=== PATIENT | female | born 1980 | race Caucasian/White ===

== ENCOUNTER 2018-08-15 19:40 | Inpatient (IN) | payer BC, MEDICAID ==
[2018-08-15] MEDS ORDERED: PENICILLIN G-K 5 MILLION UNIT VIAL ONE ×2 (20:03→23:52)
[2018-08-15] MEDS ORDERED: LIDOCAINE 1% INJ-PF (10 MG/ML) 30 ML SDV ONE (20:03)
[2018-08-15] MEDS ORDERED: OXYTOCIN/NORMAL SALINE 20 UNIT/1,000 ML RTUINJ ONE (20:03)
[2018-08-15] MEDS ORDERED: MISOPROSTOL 0.2 MG TABLET ONE (20:03)
[2018-08-15] MEDS ORDERED: OXYTOCIN/NORMAL SALINE 20 UNIT/1,000 ML RTUINJ IV PRN (20:09)
[2018-08-15] MEDS ORDERED: RINGERS SOLUTION,LACTATED 1,000 ML IV ONE (20:09)
[2018-08-15] MEDS ORDERED: RINGERS SOLUTION,LACTATED 1,000 ML IV PRN ×2 (20:09)
[2018-08-15] MEDS ORDERED: PENICILLIN G POTASSIUM 5,000,000 UNIT in DEXTROSE 5%-WATER 100 ML IV ONE (20:09)
[2018-08-15] MEDS ORDERED: RINGERS SOLUTION,LACTATED 300 ML IV ONE (20:09)
[2018-08-15 21:00] LABS: ABSOLUTE LYMPHOCYTES (AUTO) 1.5 10^3/uL (0.5-4.7); ABSOLUTE MONOCYTES (AUTO) 0.7 10^3/uL (0.1-1.4); ABSOLUTE NEUT (AUTO) 7.9 10^3/uL (1.7-8.2); BASOPHILS % (AUTO) 0.2 % (0-2); EOSINOPHILS % (AUTO) 0.3 % (0-6); HEMATOCRIT 36.1 % (36.0-47.0); HEMOGLOBIN 12.4 g/dL (12.0-15.5); LYMPHOCYTES % (AUTO) 14.6 % (13-45); MEAN CORPUSCULAR HEMOGLOBIN 32.3 pg (27.0-33.4); MEAN CORPUSCULAR HGB CONC 34.3 g/dL (32.0-36.0); MEAN CORPUSCULAR VOLUME 94 fl (80-97); MONOCYTES % (AUTO) 6.8 % (3-13); PLATELET COUNT 208 10^3/uL (150-450); RED BLOOD COUNT 3.83 10^6/uL (3.72-5.28); RED CELL DISTRIBUTION WIDTH 14.4 % (11.5-14.0); SEGMENTED NEUTROPHILS % (AUTO) 78.1 % (42-78); TOTAL CELLS COUNTED % (AUTO) 100 %; WHITE BLOOD COUNT 10.1 10^3/uL (4.0-10.5)
[2018-08-15 21:06] LABS: APPEARANCE,URINE SLIGHTLY-CLOUDY; BILIRUBIN,URINE NEGATIVE (NEGATIVE); COLOR,URINE YELLOW; GLUCOSE, URINE NEGATIVE (NEGATIVE); KETONES,URINE TRACE mg/dL (NEGATIVE); LEUKOCYTE ESTERASE,URINE TRACE (NEGATIVE); NITRITE,URINE NEGATIVE (NEGATIVE); PROTEIN,URINE NEGATIVE (NEGATIVE); URINE SPECIFIC GRAVITY 1.021; UROBILINOGEN,URINE NEGATIVE mg/dL (<2.0)
[2018-08-15 21:32] LABS: URINE AMPHETAMINES SCREEN NEGATIVE; URINE BARBITURATES SCREEN NEGATIVE; URINE BENZODIAZEPINES SCREEN NEGATIVE; URINE COCAINE SCREEN NEGATIVE; URINE MARIJUANA (THC) SCREEN NEGATIVE; URINE METHADONE SCREEN NEGATIVE; URINE PHENCYCLIDINE SCREEN NEGATIVE
[2018-08-16] MEDS ORDERED: FENTANYL CITRATE INJ/PF 100 MCG/2 ML AMPUL ONE (03:51)
[2018-08-16] MEDS ORDERED: FENTANYL CITRATE INJ/PF 100 MCG/2 ML AMPUL IV ONE (04:20)
--- NOTE | 2018-08-16 04:46 | Admission Physical ---
Datetime Report Generated by CPN: 08/16/2018 04:46 CURRENT ADMISSION Chief Complaint: Signs/Symptoms Gestational HTN; Scheduled Induction of Labor Indication for Induction: Chronic Primary/Essential HTN; Eclampsia-Mild Admit Impression : Term, Intrauterine ; No Active Labor; Intact Membranes; Induction of Labor Admit Plan: Admit to Unit; Initiate Labor Induction Protocol ALLERGIES Medication Allergies: Yes Medication Allergies: codeine/Hives (08/15/2018) Latex: No Latex Allergies Food Allergies: soy, msg, artificial colors _ preservatives OBSTETRICAL HISTORY EDC: 09/06/2018 00:00 : 4 Para: 3 Ectopic: 0 Livin Cesareans: 0 VBACs: 0 Multiple Births: 0 Gestational Diabetes: No Rh Sensitization: No Incompetent Cervix: No BRYAN: No Infertility: No ART Treatment: No Uterine Anomaly: No IUGR: No Hx Previous C/S: No Macrosomia: No Hx Loss/Stillborn: No PIH: No Hx : No Placenta Previa/Abruption: No Depression/PP Depression: No PTL/PROM: No Post Hemorrhage: No Obstetrical History Comments: G1: 2008 female 6lbs 7 oz G2: 2010 male 9lbs 8 oz G3: 2014 male 8lbs 0 oz SEE RECORDS Alcohol: No Marijuana : No Cocaine: No Other Illicit Drugs: No Cigarettes: Never Smoker. [id number] MEDICAL HISTORY Diabetes: No Blood Transfusion: No Pulmonary Disease (Asthma, TB): No Breast Disease: No Hypertension: Yes Computer Mechanic Surgery: No Heart Disease: No Hosp/Surgery: No Autoimmune Disorder: No Anesthetic Complications: No Kidney Disease: No Abnormal Pap Smear: No Neuro/Epilepsy: No Psychiatric Disorders: No Other Medical Diseases: No Hepatitis/Liver Disease: No Significant Family History: No Varicosities/Phlebitis: No Trauma/Violence : No Thyroid Dysfunction: No Medical History Comments: GHTH per MFM INFECTIOUS HISTORY Gonorrhea: No Genital Herpes: No Chlamydia: No Tuberculosis: No Syphilis: No Hepatitis: No HIV/AIDS Exposure: No Rash or Viral Illness: No HPV: Yes Infectious History Comments: HPV 2000 PHYSICAL EXAM General: Normal HEENT: Normal Neurologic: Normal Thyroid: Deferred Heart: Normal Lungs: Normal Breast: Deferred Back: Normal Abdomen: Normal Genitourinary Exam: Normal Extremities: Normal DTRs: Normal Pelvic Type: Adequate Vital Signs: Reviewed VAGINAL EXAM Dilatation: 2 Effacement: 50 Station: -3 Contraction Comments: rare MEMBRANES Membranes: Intact FETUS A Monitoring: External US FHR- Baseline: 140 Variability: Moderate 6-25bpm Accelerations: 15X15 Decelerations: None FHR Category: Category I Presentation: Vertex Admit Comment: 38yo at 36+6ega presents for IOL due to CHTN with superimposed preE. Pelvis proven to 9#8oz. H/o PreE with G1, G2, G3. +GBS - PCN for GBS prophy. Late transfer of care at 35wks. Declined RHogam at prior OB offices since this is her reported last . Pt declined Glucola - but per MFM normal accuchecks and no need to start medications. She does have a history of GDM with prior pregnancies. Declined Flu vaccine and declined Tdap. She was seen by M on 07/31 and noted polyhydramnios which resolved on subsequent AFIs in office at . 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 EFW on 07/31 was 8#0oz. She was sending GLucose logs to [facility] who was manageing this. She has a favorable cvx evam and was admitted on 08/15 for IOL. Pitocin initiated and patient made adquate change. Anticipate . pain medication on patient request. Will notify peds. PLANS FOR LABOR AND DELIVERY Labor and Delivery: Plan Pain Management: Natural Feeding Preference: Breast Benefit of Breast Feed Discussed: Yes Circumcision: No INFORMED CONSENT Informed Consent Obtained: Vaginal Delivery; Induction of Labor; Risks, Benefits and Alternatives Discussed Signature: Electronically signed by Janneth Angel MD ([facility]) on 08/16/2018 at 04:45 with User ID: [email or web address]
[2018-08-16] MEDS ORDERED: PROMETHAZINE HCL INJ 25 MG/1 ML VIAL IV PRN (04:51)
[2018-08-16] MEDS ORDERED: NA PHOS,M-B/NA PHOS,DI-BA (ADULT) 133 ML ENEMA PR PRN (04:51)
[2018-08-16] MEDS ORDERED: MEASLES,MUMPS&RUBELLA VACC/PF 0.5 ML VIAL SUBCUT PRN (04:51)
[2018-08-16] MEDS ORDERED: ZOLPIDEM TARTRATE 5 MG TABLET PO PRN (04:51)
[2018-08-16] MEDS ORDERED: DIPHENHYDRAMINE HCL 25 MG CAPSULE PO PRN (04:51)
[2018-08-16] MEDS ORDERED: PROMETHAZINE HCL 25 MG SUPP.RECT PR PRN (04:51)
[2018-08-16] MEDS ORDERED: PROMETHAZINE HCL 25 MG TABLET PO PRN (04:51)
[2018-08-16] MEDS ORDERED: DIBUCAINE 1% OINTMENT 28 GM TP PRN (04:51)
[2018-08-16] MEDS ORDERED: ACETAMINOPHEN WITH CODEINE #3 TABLET PO PRN ×2 (04:51)
[2018-08-16] MEDS ORDERED: OXYTOCIN/NORMAL SALINE 20 UNIT/1,000 ML RTUINJ IV PRN (04:51)
[2018-08-16] MEDS ORDERED: BENZOCAINE/MENTHOL AEROSOL SPRAY 56 ML TOP PRN (04:51)
[2018-08-16] MEDS ORDERED: DIPH/PERTUSS(ACELL)/TETANUS VAC/PF 0.5 ML SYR (>=10YO) IM PRN (04:51)
[2018-08-16] MEDS ORDERED: ACETAMINOPHEN 325 MG TABLET PO PRN (04:51)
[2018-08-16] MEDS ORDERED: MAGNESIUM HYDROXIDE SUSP 30 ML UDCUP PO PRN (04:51)
[2018-08-16] MEDS ORDERED: PSEUDOEPHEDRINE HCL 30 MG TABLET PO PRN (04:51)
[2018-08-16] MEDS ORDERED: GLYCERIN/WITCH HAZEL LEAF 1 EACH MED..PAD TP PRN (04:51)
--- NOTE | 2018-08-16 04:57 | Warning Signs in Babies ---
VOD Warning Signs Datetime Report Generated by [facility]: 08/16/2018 04:57 VOD#608 -Warning Signs in Babies: Viewed with Parent(s)/Family (08/16/2018 04:45:Jessika Graves RN)
[2018-08-16] MEDS: PENICILLIN G POTASSIUM 2,500,000 UNIT in DEXTROSE 5%-WATER 50 ML IV SCH (08:41)
[2018-08-16] MEDS: IBUPROFEN 800 MG TABLET PO SCH ×3 (08:42→21:21)
[2018-08-16] MEDS: FERROUS SULFATE 325 MG TABLET PO SCH ×2 (10:35→18:10)
[2018-08-16] MEDS: PRENATAL VITAMIN W DHA CAPSULE PO SCH (10:36)
[2018-08-16] MEDS: FAMOTIDINE 20 MG TABLET PO SCH ×2 (10:36→21:19)
[2018-08-16] MEDS: DOCUSATE SODIUM 100 MG CAPSULE PO SCH ×2 (10:36→18:10)
[2018-08-16] MEDS: SENNOSIDES/DOCUSATE 8.6-50 MG 1 EACH TABLET PO SCH (10:36)
--- NOTE | 2018-08-16 14:44 | Delivery Summary ---
Del Sum A-C Datetime Report Generated by CPN: 08/16/2018 14:44 DELIVERY PERSONNEL DELIVERY PERSONNEL: [id number] Delivery Doctor:: Janneth Angel MD Labor and Delivery Nurse:: Jessika Graves RN Nursery Nurse:: Vida Andres RN Chemical Process Equipment Operator/CARGOMAN: Derek Ertel, CARGOMAN Chemical Process Equipment Operator/CARGOMAN: MylesMORELIA SolorioA MATERNAL INFORMATION Delivery Anesthesia: None Medications After Delivery: Pitocin Drip 20 Units/1000ml NSS Maternal Complications: None Provider Comments: VMI delivered in [place] presentation with no nuchal cord but triple foot cord. Shoulders and body delivered without difficulty. Placenta delivered intact spontaneously. FF at U. Good hemostasis. 1st degree perineal laceration repaired in usual fashion. Mother and baby stable upon provider leaving the room. LABOR SUMMARY EDC: 09/06/2018 00:00 No. Babies in Womb: 1 Attempted: No Labor Anesthesia: None LABOR INFORMATION Reason for Induction: Gestational Hypertension; Pre-Eclampsia Onset of Labor: 08/16/2018 00:28 Complete Dilatation: 08/16/2018 03:13 Oxytocin: Induction Group B Beta Strep: Positive Antibiotics # of Doses: 2 Antibiotics Time of Last Dose: 0020 Name of Antibiotic Given: Penicillin Steroids Given: None Reason Steroids Not Administered: Not Applicable MEMBRANES Membranes Rupture Method: Artificial Rupture of Membranes: 08/16/2018 00:28 Length of Rupture (hr): 3.27 Amniotic Fluid Color: Clear Amniotic Fluid Amount: Large Amniotic Fluid Odor: Normal STAGES OF LABOR Stage 1 hr: 2 Stage 1 min: 45 Stage 2 hr: 0 Stage 2 min: 31 Stage 3 hr: 0 Stage 3 min: 10 Total Time in Labor hr: 3 Total Time in Labor min: 26 VAGINAL DELIVERY Episiotomy: None Laceration #1: Perineal Laceration Extension #1: First Degree Laceration Repair: Yes Laceration Repair Note: 1st degree laceration repaired in usual fashion Initial Vag Sponge Count: 0 Final Vag Sponge Count: 0 Initial Vag Sharps Count: 0 Final Vag Sharps Count: 0 Sponge Count Correct: N/A Sharps Count Correct: N/A CSECTION DELIVERY Primary Indication: N/A Secondary Indication: N/A CSection Incidence: N/A Labor: N/A Elective: N/A CSection Incision: N/A BABY A INFORMATION Delivery Date/Time: 08/16/2018 03:44 Method of Delivery: Vaginal Born in Route : No : N/A Forceps: N/A Vacuum Extraction: N/A Shoulder Dystocia : No PRESENTATION/POSITION BABY A Presentation: Cephalic Cephalic Presentation: Vertex Vertex Position: Right Occipital Anterior Breech Presentation: N/A PLACENTA INFORMATION BABY A Placenta Delivery Time : 08/16/2018 03:54 Placenta Method of Delivery: Spontaneous Placenta Status: Delivered SCORES BABY A Heart Rate 1 min: >100 bpm Resp Effort 1 min: Good Cry Reflex Irritability 1 min: Cough or Sneeze or Pulls Away Muscle Tone 1 min: Active Motion Color 1 min: Blue/Pale Resuscitation Effort 1 min: N/A SCORE 1 MIN: 8 Heart Rate 5 min: >100 bpm Resp Effort 5 min: Good Cry Reflex Irritability 5 min: Cough or Sneeze or Pulls Away Muscle Tone 5 min: Active Motion Color 5 min: Body Sartell, Extremities Blue Resuscitation Effort 5 min: N/A SCORE 5 MIN: 9 INFANT INFORMATION BABY A Gestational Age at Delivery: 37.0 Gestational Status: Early Term- 37- 38.6 Weeks Infant Outcome : Liveborn Condition : Stable Sex: Male IDENTIFICATION BABY A Verification Date/Time: 08/16/2018 03:57 ID Band Number: [id number] Mother's Name Verified: Yes RN Verifying Infant: Mandy Graves RN Additional Verifying Personnel: R. Ertel CARGOMAN WEIGHT/LENGTH BABY A Infant Birthweight (gm): 4790 Infant Weight (lb): 10 Infant Weight (oz): 9 Length (in): 21.50 Infant Length (cm): 54.61 CORD INFORMATION BABY A No. Cord Vessels: 3 Nuchal Cord : N/A Cord Blood Taken: Yes-For Eval (Mom's Blood Type - or O+) Suction: Mouth ASSESSMENT BABY A Complications: None Physical Findings at Delivery: Within Normal Limits Infant Respirations: Appears Normal Skin to Skin: Yes Care By: M. Jimboan RN Transferred To: Remains with Mother BABY B INFORMATION : N/A SIGNATURES Signature: with User ID: [email or web address]
--- NOTE | 2018-08-16 14:45 | Delivery Summary ---
Del Sum A-C Datetime Report Generated by CPN: 08/16/2018 14:45 DELIVERY PERSONNEL DELIVERY PERSONNEL: [id number] Delivery Doctor:: Janneth Angel MD Labor and Delivery Nurse:: Jessika Graves RN Nursery Nurse:: Vida Andres RN Correctional Manager/KNUCKLER: Derek Ertel, KNUCKLER Correctional Manager/KNUCKLER: MylesMORELIA SolorioA MATERNAL INFORMATION Delivery Anesthesia: None Medications After Delivery: Pitocin Drip 20 Units/1000ml NSS Maternal Complications: None Provider Comments: VMI delivered in [place] presentation with no nuchal cord but triple foot cord. Shoulders and body delivered without difficulty. Placenta delivered intact spontaneously. FF at U. Good hemostasis. 1st degree perineal laceration repaired in usual fashion. Mother and baby stable upon provider leaving the room. LABOR SUMMARY EDC: 09/06/2018 00:00 No. Babies in Womb: 1 Attempted: No Labor Anesthesia: None LABOR INFORMATION Reason for Induction: Gestational Hypertension; Pre-Eclampsia Onset of Labor: 08/16/2018 00:28 Complete Dilatation: 08/16/2018 03:13 Oxytocin: Induction Group B Beta Strep: Positive Antibiotics # of Doses: 2 Antibiotics Time of Last Dose: 0020 Name of Antibiotic Given: Penicillin Steroids Given: None Reason Steroids Not Administered: Not Applicable MEMBRANES Membranes Rupture Method: Artificial Rupture of Membranes: 08/16/2018 00:28 Length of Rupture (hr): 3.27 Amniotic Fluid Color: Clear Amniotic Fluid Amount: Large Amniotic Fluid Odor: Normal STAGES OF LABOR Stage 1 hr: 2 Stage 1 min: 45 Stage 2 hr: 0 Stage 2 min: 31 Stage 3 hr: 0 Stage 3 min: 10 Total Time in Labor hr: 3 Total Time in Labor min: 26 VAGINAL DELIVERY Episiotomy: None Laceration #1: Perineal Laceration Extension #1: First Degree Laceration Repair: Yes Laceration Repair Note: 1st degree laceration repaired in usual fashion Initial Vag Sponge Count: 0 Final Vag Sponge Count: 0 Initial Vag Sharps Count: 0 Final Vag Sharps Count: 0 Sponge Count Correct: N/A Sharps Count Correct: N/A CSECTION DELIVERY Primary Indication: N/A Secondary Indication: N/A CSection Incidence: N/A Labor: N/A Elective: N/A CSection Incision: N/A BABY A INFORMATION Delivery Date/Time: 08/16/2018 03:44 Method of Delivery: Vaginal Born in Route : No : N/A Forceps: N/A Vacuum Extraction: N/A Shoulder Dystocia : No PRESENTATION/POSITION BABY A Presentation: Cephalic Cephalic Presentation: Vertex Vertex Position: Right Occipital Anterior Breech Presentation: N/A PLACENTA INFORMATION BABY A Placenta Delivery Time : 08/16/2018 03:54 Placenta Method of Delivery: Spontaneous Placenta Status: Delivered SCORES BABY A Heart Rate 1 min: >100 bpm Resp Effort 1 min: Good Cry Reflex Irritability 1 min: Cough or Sneeze or Pulls Away Muscle Tone 1 min: Active Motion Color 1 min: Blue/Pale Resuscitation Effort 1 min: N/A SCORE 1 MIN: 8 Heart Rate 5 min: >100 bpm Resp Effort 5 min: Good Cry Reflex Irritability 5 min: Cough or Sneeze or Pulls Away Muscle Tone 5 min: Active Motion Color 5 min: Body Killian, Extremities Blue Resuscitation Effort 5 min: N/A SCORE 5 MIN: 9 INFANT INFORMATION BABY A Gestational Age at Delivery: 37.0 Gestational Status: Early Term- 37- 38.6 Weeks Infant Outcome : Liveborn Condition : Stable Sex: Male IDENTIFICATION BABY A Verification Date/Time: 08/16/2018 03:57 ID Band Number: [id number] Mother's Name Verified: Yes RN Verifying Infant: Mandy Graves RN Additional Verifying Personnel: R. Ertel KNUCKLER WEIGHT/LENGTH BABY A Infant Birthweight (gm): 4790 Infant Weight (lb): 10 Infant Weight (oz): 9 Length (in): 21.50 Infant Length (cm): 54.61 CORD INFORMATION BABY A No. Cord Vessels: 3 Nuchal Cord : N/A Cord Blood Taken: Yes-For Eval (Mom's Blood Type - or O+) Suction: Mouth ASSESSMENT BABY A Complications: None Physical Findings at Delivery: Within Normal Limits Infant Respirations: Appears Normal Skin to Skin: Yes Care By: M. Jimboan RN Transferred To: Remains with Mother BABY B INFORMATION : N/A SIGNATURES Signature: with User ID: [email or web address]
[2018-08-17] MEDS: IBUPROFEN 800 MG TABLET PO SCH ×2 (06:46→13:57)
[2018-08-17 07:35] LABS: HEMATOCRIT 33.6 % (36.0-47.0); HEMOGLOBIN 11.6 g/dL (12.0-15.5); MEAN CORPUSCULAR HEMOGLOBIN 32.6 pg (27.0-33.4); MEAN CORPUSCULAR HGB CONC 34.6 g/dL (32.0-36.0); MEAN CORPUSCULAR VOLUME 94 fl (80-97); PLATELET COUNT 165 10^3/uL (150-450); RED BLOOD COUNT 3.57 10^6/uL (3.72-5.28); RED CELL DISTRIBUTION WIDTH 14.5 % (11.5-14.0); WHITE BLOOD COUNT 7.8 10^3/uL (4.0-10.5)
[2018-08-17] MEDS: DOCUSATE SODIUM 100 MG CAPSULE PO SCH ×2 (09:50→17:11)
[2018-08-17] MEDS: FERROUS SULFATE 325 MG TABLET PO SCH ×2 (09:50→17:11)
[2018-08-17] MEDS: FAMOTIDINE 20 MG TABLET PO SCH (09:50)
[2018-08-17] MEDS: PRENATAL VITAMIN W DHA CAPSULE PO SCH (09:51)
[2018-08-17] MEDS: SENNOSIDES/DOCUSATE 8.6-50 MG 1 EACH TABLET PO SCH (09:51)
--- NOTE | 2018-08-17 10:25 | PDOC PROGRESS REPORT ---
Subjective-OB Progress Note for:: 08/17/18 Subjective: reports bleeding slowing, pain controlled with current meds, denies needs Physical Exam (OB) Vital Signs: Temp Pulse Resp BP Pulse Ox 97.5 F 68 21 H 124/63 98 08/17/18 08:07 08/17/18 08:07 08/17/18 08:07 08/17/18 08:07 08/17/18 08:07 Intake & Output 08/16/18 08/17/18 08/18/18 06:59 06:59 06:59 Intake Total 2300 Balance 2300 Weight 126.6 kg - Abdomen Description: Soft Hernia Present: No Fundal Description: Firm, Midline Fundal Height: u/u - u/2 - Abdominal Distension: No distension Tenderness: Nontender - Extremities Lower extremities: Danis's sign - neg Calf: Normal, Nontender Objective-Diagnostic Laboratory: 08/17/18 07:14 08/17/18 08/17/18 07:14 07:14 WBC 7.8 RBC 3.57 L Hgb 11.6 L Hct 33.6 L MCV 94 MCH 32.6 MCHC 34.6 RDW 14.5 H Plt Count 165 Blood Type O NEGATIVE Assessment and Plan(PN) - Assessment and Plan (1) Advanced maternal age in multigravida Is this a current diagnosis for this admission?: Yes (2) Carrier of group B Streptococcus Is this a current diagnosis for this admission?: Yes (3) Obstetrical laceration, first degree Is this a current diagnosis for this admission?: Yes (4) Rh negative state in antepartum period Is this a current diagnosis for this admission?: Yes (5) Vaginal delivery Is this a current diagnosis for this admission?: Yes - Time Spent with Patient Time with patient: Less than 15 minutes - Disposition Anticipated Discharge: Home Within: within 24 hours
--- NOTE | 2018-08-17 12:46 | PDOC PROGRESS REPORT ---
Subjective Progress Note for:: 08/17/18 Subjective:: Pt stated that she did not want a RhoGam injection. Patient stated that her was getting a vasectomy and that she plans to have no more children. She stated that she wanted the test done to show that she did not need RhoGam Reason For Visit: PRE E Physical Exam - Physical Exam Vital Signs: Temp Pulse Resp BP Pulse Ox 97.5 F 68 21 H 124/63 98 08/17/18 08:07 08/17/18 08:07 08/17/18 08:07 08/17/18 08:07 08/17/18 08:07 Intake & Output 08/16/18 08/17/18 08/18/18 06:59 06:59 06:59 Intake Total 2300 Balance 2300 Weight 126.6 kg Result Laboratory Results: 08/17/18 07:14 08/17/18 08/17/18 07:14 07:14 WBC 7.8 RBC 3.57 L Hgb 11.6 L Hct 33.6 L MCV 94 MCH 32.6 MCHC 34.6 RDW 14.5 H Plt Count 165 Blood Type O NEGATIVE Assessment & Plan - Diagnosis (1) Advanced maternal age in multigravida Qualifiers: Trimester: third trimester Qualified Code(s): O09.523 - Supervision of elderly multigravida, third trimester Is this a current diagnosis for this admission?: Yes (2) Carrier of group B Streptococcus Is this a current diagnosis for this admission?: Yes (3) Chronic hypertension with superimposed pre-eclampsia Is this a current diagnosis for this admission?: Yes (4) Macrosomia Is this a current diagnosis for this admission?: Yes (5) Obstetrical laceration, first degree Is this a current diagnosis for this admission?: Yes (6) Rh negative state in antepartum period Is this a current diagnosis for this admission?: Yes (7) Vaginal delivery Is this a current diagnosis for this admission?: Yes - Time Time Spent with patient: Less than 15 minutes - Spoke to patient about receiving her RhoGam injection. Patient initially declined to have the medication given. Patient stated that this was her last child and that her will be undergoing a vasectomy. She thought that there was a test that would show that she did not need RhoGam. I believe that she is referring to the Kleihauer-Betke test, which shows the quantity of mixing determines the dose of RhoGam. I reminded her that RhoGam was for her next child and that sometimes permanent sterilization fails. She stated that she will think about receiving the injection. - Plan Summary Plan Summary: Plan: Discussed RhoGam at length with the patient. Patient states that she will consider everything discuss and decide later today whether she will receive the injection.
[2018-08-18] MEDS: IBUPROFEN 800 MG TABLET PO SCH ×3 (00:12→05:42)
[2018-08-18] MEDS: FAMOTIDINE 20 MG TABLET PO SCH ×2 (00:12→10:03)
[2018-08-18] MEDS ORDERED: IBUPROFEN 800 MG TABLET PO SCH (10:00)
[2018-08-18] MEDS: DOCUSATE SODIUM 100 MG CAPSULE PO SCH (10:02)
[2018-08-18] MEDS: PRENATAL VITAMIN W DHA CAPSULE PO SCH (10:03)
[2018-08-18] MEDS: FERROUS SULFATE 325 MG TABLET PO SCH (10:03)
[2018-08-18] MEDS: SENNOSIDES/DOCUSATE 8.6-50 MG 1 EACH TABLET PO SCH (10:03)
--- NOTE | 2018-08-18 10:22 | PDOC PROGRESS REPORT ---
Subjective-OB Progress Note for:: 08/18/18 Subjective: Ready to go home. Physical Exam (OB) Vital Signs: Temp Pulse Resp BP Pulse Ox 98.0 F 69 18 143/75 H 98 08/17/18 19:18 08/17/18 19:18 08/17/18 19:18 08/17/18 19:18 08/17/18 19:18 Intake & Output 08/17/18 08/18/18 08/19/18 06:59 06:59 06:59 Intake Total 2300 300 Balance 2300 300 - PIH/Pre-Eclampsia Clonus: Negative Headache: Absent Epigastric Pain: No Visual Changes: No - Lochia Lochia Amount: Scant < 10 ml Lochia Color: Rubra/Red - Abdomen Description: Soft Hernia Present: No Bowel Sounds: Normoactive Flatus Presence: Present Stool: Yes Fundal Description: Firm, Midline Fundal Height: u/u - u/2 Objective-Diagnostic Laboratory: 08/17/18 07:14 Assessment and Plan(PN) - Disposition Anticipated Discharge: Home
--- NOTE | 2018-08-18 10:27 | PDOC DISCHARGE SUMMARY ---
Final Diagnosis Discharge Date: 08/18/18 - Final Diagnosis (1) Advanced maternal age in multigravida Is this a current diagnosis for this admission?: Yes (2) Carrier of group B Streptococcus Is this a current diagnosis for this admission?: Yes (3) Chronic hypertension with superimposed pre-eclampsia Is this a current diagnosis for this admission?: Yes (4) Macrosomia Is this a current diagnosis for this admission?: Yes (5) Obstetrical laceration, first degree Is this a current diagnosis for this admission?: Yes (6) Rh negative state in antepartum period Is this a current diagnosis for this admission?: Yes (7) Vaginal delivery Is this a current diagnosis for this admission?: Yes Discharge Data - Discharge Medication Home Medications: No122/Iron/Folic Acid [ Multi Tablet] 1 each PO DAILY 08/15/18 Gestational Age: 37.0 wks Reason(s) for Admission: Induction of Labor, PIH Procedures: Ultrasound Intrapartum Procedure(s): Spontaneous Vaginal Delivery Complication(s): Laceration-Perineal Laceration-Degree: 1st - Data Baby 1 Male at 1 minute: 8 at 5 minutes: 9 Weight: 4.791 kg Home with Mother: Yes Complications: No - Diagnosis Test Laboratory: Temp Pulse Resp BP Pulse Ox 98.0 F 69 18 143/75 H 98 08/17/18 19:18 08/17/18 19:18 08/17/18 19:18 08/17/18 19:18 08/17/18 19:18 08/15/18 08/15/18 08/17/18 20:00 20:42 07:14 RBC 3.83 3.57 L Hgb 12.4 11.6 L Hct 36.1 33.6 L Urine Opiates Screen NEGATIVE - Discharge information/Instructions Discharge Activity: Activity As Tolerated, Balance Activity w/Rest, Pelvic Rest , Slowly Increase Activity, No tub bath Discharge Diet: Regular Disposition: HOME, SELF-CARE Follow up with: [facility] in: 1, Weeks
[2018-08-18 16:58] VITALS: BP 125/70
== END 2018-08-18 15:40 | disposition home or self-care (01) | DRG 807 ==
LOC: LR 19:40 → 2S 08-16 07:09 → LR 08-16 07:41 → 2S 08-16 07:42
PROVIDERS: ADMIT Student in an Organized Health Care Education/Training Program; ATTEND Student in an Organized Health Care Education/Training Program
PROC: 10E0XZZ Delivery of Products of Conception, External Approach (ICD-10-PCS; principal; 2018-08-16)
PROC: 4A1HXCZ Monitoring of Products of Conception, Cardiac Rate, External Approach (ICD-10-PCS; 2018-08-16)
DX: O11.4 Pre-existing hypertension with pre-eclampsia, complicating childbirth (principal); Z37.0 Single live birth; O70.0 First degree perineal laceration during delivery; Z3A.37 37 weeks gestation of pregnancy; O36.63X0 Maternal care for excessive fetal growth, third trimester, not applicable or unspecified; O26.893 Other specified pregnancy related conditions, third trimester; Z67.91 Unspecified blood type, Rh negative; Z53.29 Procedure and treatment not carried out because of patient's decision for other reasons; O69.2XX0 Labor and delivery complicated by other cord entanglement, with compression, not applicable or unspecified; O99.824 Streptococcus B carrier state complicating childbirth; Z28.21 Immunization not carried out because of patient refusal
CPT/HCPCS: 36415; 80307; 81001; 85025; 85027; 85461; 86592; 86850; 86900; 86901; 88307; J2540; J2590; J3010; J3490